=== PATIENT | female | born 1990 | race Caucasian/White ===

== ENCOUNTER 2018-02-02 06:28 | Emergency (ER) | payer OTHER | END 2018-02-02 07:21 | disposition home or self-care (01) | LOC: ERS 06:28 | DX: O99.512 Diseases of the respiratory system complicating pregnancy, second trimester (principal); J02.9 Acute pharyngitis, unspecified; O99.89 Other specified diseases and conditions complicating pregnancy, childbirth and the puerperium; R09.81 Nasal congestion; Z3A.18 18 weeks gestation of pregnancy | CPT/HCPCS: 87081; 87430; 99283 ==

== ENCOUNTER 2018-06-12 05:30 | Inpatient (IN) | payer OTHER ==
--- NOTE | 2018-06-11 20:38 | PDOC.LDHP ---
Labor and Delivery H&P Chief complaint: scheduled induction HPI: 27 Y/0 AT 37 AND 2/7 PRESENTS TODAY FOR MEDICAL TERM INDUCTION OF LABOR FOR GHTN, PREVIOUS HX OF DEMISE FOR CARDIAC RELATED DEFORMITY. ECHO THIS APPEARS TO BE NORMAL. PATIENT HAS HAD WEEKLY BPP TESTING IN-OFFICE. NO BP MEDICATIONS HAVE BEEN USED. Current gestational age (weeks): 37 Current complications: gestational hypertension Abnormal US findings: No Current medications: pre- vitamins Social history: none - Physical Exam Vital signs reviewed and normal: yes General: NAD Heart: RRR Lungs: nonlabored breathing Abdomen: NTTP Extremeties: no edema - Assessment L&D Assessment: medically indicated induction - Plan Plan: admit to L&D
[~2018-06-12 05:30] MED LIST: Butorphanol Tartrate 1 MG/ML VIAL SLOW IVP PRN; Carboprost 250 MCG/ML AMP IM PRN; Diphenoxylate HCl/Atropine Tablet PO PRN; HYDROcodone/Acetaminophen 5/325 mg Tablet PO PRN; Ibuprofen 800 MG TAB PO PRN; Lidocaine 1% (PF) 30 ML VIAL SC PRN; Misoprostol 200 MCG TAB PR PRN; NS / Oxytocin 40 units/1000ml 1,000 ML IV PRN; NS w/ Oxytocin 10 units 500 ML IV SCH; Ondansetron PF 4 MG/2 ML Vial IVP PRN; Promethazine HCl 25 MG/ML VIAL IM PRN
[2018-06-12 07:30] VITALS: BMI 29.3
[2018-06-12] MEDS: Lactated Ringer's 1,000 ML IV SCH ×3 (07:52→16:02)
[2018-06-12] MEDS: NS w/ Oxytocin 10 units 500 ML IV SCH ×2 (08:15→08:27)
[2018-06-12 08:24] LABS: Hemoglobin 12.6 g/dL (12.0-16.0); Mean Corpuscular HGB CONC 33.7 g/dL (32.0-36.0); Mean Corpuscular Hemoglobin 30.1 pg (27.0-31.0); Mean Corpuscular Volume 89.3 fL (78.0-98.0); Mean Platelet Volume 9.5 fL (7.4-10.4); Platelet Count 160 thou/uL (130-400); RBC Distribution Width 11.8 % (11.5-14.5)
[2018-06-12 09:03] LABS: Syphilis Antibody Nonreactive (Nonreactive); Syphilis Antibody Index 0.03 S/CO (<1.00 Non-Reactive)
[2018-06-13] MEDS: Lactated Ringer's 1,000 ML IV SCH ×3 (00:10→18:45)
[2018-06-13] MEDS: NS w/ Oxytocin 10 units 500 ML IV SCH (06:53)
[2018-06-13 13:52] LABS: HBSAg Index 0.22 S/CO (0-0.99); Hep B Surf Ag Non-Reactive S/CO (NonReactive)
[2018-06-13] MEDS ORDERED: NS / Oxytocin 40 units/1000ml 1,000 ML IV SCH (15:17)
[2018-06-13] MEDS ORDERED: Bisacodyl 10 MG SUPP PR PRN (15:17)
[2018-06-13] MEDS ORDERED: Zolpidem Tartrate 5 MG TAB PO PRN (15:17)
[2018-06-13] MEDS ORDERED: Benzocaine/Menthol 20-0.5% 60 ML CAN TOP PRN (15:17)
[2018-06-13] MEDS ORDERED: Milk Of Magnesia 30 ML UDCUP PO PRN (15:17)
[2018-06-13] MEDS ORDERED: diphenhydrAMINE 25 MG CAP PO PRN (15:17)
[2018-06-13] MEDS ORDERED: Preparation H Ointment 28 GM TUBE PR PRN (15:17)
[2018-06-13] MEDS ORDERED: Promethazine HCl 25 MG/ML VIAL IM PRN (15:17)
[2018-06-13] MEDS ORDERED: HYDROcodone/Acetaminophen 5/325 mg Tablet PO PRN ×2 (15:17)
[2018-06-13] MEDS ORDERED: Ondansetron PF 4 MG/2 ML Vial IVP PRN (15:17)
[2018-06-13] MEDS ORDERED: Lanolin Ointment 7 GM TUBE TOP PRN (15:17)
[2018-06-13] MEDS: Ferrous Sulfate 325 MG TAB PO SCH (18:03)
[2018-06-14 06:36] LABS: Hemoglobin 11.9 g/dL (12.0-16.0); Mean Corpuscular HGB CONC 33.7 g/dL (32.0-36.0); Mean Corpuscular Hemoglobin 30.2 pg (27.0-31.0); Mean Corpuscular Volume 89.5 fL (78.0-98.0); Mean Platelet Volume 8.6 fL (7.4-10.4); Platelet Count 126 thou/uL (130-400); RBC Distribution Width 11.6 % (11.5-14.5); Red Blood Cell (RBC) Count 3.95 mill/uL (4.20-5.40); White Blood Cell (WBC) Count 10.4 thou/uL (4.8-10.8)
[2018-06-14] MEDS ORDERED: Prenatal Vitamin 1 TAB PO SCH (09:00)
[2018-06-14] MEDS: Ibuprofen 800 MG TAB PO SCH ×3 (09:00→16:31)
[2018-06-14] MEDS ORDERED: Adacel (T-DAP) 0.5 ML SYRINGE IM ONE (09:00)
[2018-06-14] MEDS ORDERED: Varicella virus, LIVE 0.5 ML VIAL SC ONE (09:00)
[2018-06-14] MEDS ORDERED: Measles/Mumps/Rubella 10 MCG/0.5 ML VIAL SC ONE (09:00)
[2018-06-14] MEDS: Docusate Calcium (SURFAK) 240 MG CAP PO SCH ×2 (09:00→11:58)
[2018-06-14 11:40] VITALS: BP 142/94; TEMP 98.1
[2018-06-14] MEDS: Ferrous Sulfate 325 MG TAB PO SCH ×2 (11:58→19:13)
--- NOTE | 2018-06-14 19:34 | PDOC.PP ---
Post Progress Note Post Day #: 1 PO intake tolerated: yes Flatus: yes Ambulation: yes Vital Signs (12 hours) Temp Pulse Resp BP Pulse Ox 06/14/18 11:39 98.1 F 70 20 142/94 H 06/14/18 08:19 98.5 F 92 20 136/65 97 06/14/18 08:15 97 Weight Weight 179 lb - Physical Examination General: NAD Cardiovascular: no m/r/g, RRR Respiratory: clear to auscultation bilaterally, non-labored breathing Abdominal: + bowel sounds, lochia Extremities: negative homans (B) Neurological: no gross focal deficits Psychiatric: A&Ox3, normal affect (DC to home. F/U in clinic in 2 weeks.) Result Diagrams: 06/14/18 06:19 Additional Labs: Post Labs Blood Type A POSITIVE 06/12/18 08:01 Hep Bs Antigen Non-Reactive S/CO (NonReactive) 06/12/18 08:01
--- NOTE | 2018-06-14 19:36 | PDOC.LDPN ---
Labor & Delivery Progress Note - Subjective Subjective: comfortable - Objective Vital signs reviewed and normal: yes General: NAD, resting Uterine fundus: non tender Dilation: 4 Effacement: 75% Station: -2 FHT: category 1 (Patient is doing well. Pitocin currently off. Will restart in the morning if cervical change is not achieved. BP is stable.)
--- NOTE | 2018-06-15 03:23 | DN ---
DATE OF PROCEDURE: 06/13/2018 This lady for the majority of her went under a different name including her insurance which is under last name [facility] for much of the . PREOPERATIVE DIAGNOSIS: Intrauterine at 37 weeks with a history of chronic hypertension as well as a history of a stillbirth, premature delivery with the fetus having congenital cardiac anomalies, turned out to be lethal. POSTOPERATIVE DIAGNOSIS: Intrauterine at 37 weeks with a history of chronic hypertension as well as a history of a stillbirth, premature delivery with the fetus having congenital cardiac anomalies, turned out to be lethal. PROCEDURE PERFORMED: Spontaneous vaginal delivery over intact perineum without epidural. FINDINGS: Viable female , weighing 2769 g or 6 pounds 2 ounces with Apgars 9 and 9. QUANTITATIVE BLOOD LOSS: 203 mL. COMPLICATIONS: None. PROCEDURE IN DETAIL: The patient presented to [facility] where she was admitted to the labor and delivery service. The patient underwent a normal and uneventful labor with normal cervical dilatation until she was found to be completely dilated. She was then allowed to push and was able to bring the baby down and delivered the baby in a vertex presentation without difficulties. Once the head delivered in occiput anterior position, the shoulders followed spontaneously along with the rest of the baby's body. Once out the baby's mouth and nose were bulb suctioned. The cord was clamped and cut and baby was handed to waiting attendants. Cord blood was collected. Gentle fundal massage was performed and the placenta delivered intact without problems. Hemostasis was assured. Quantitative blood loss was calculated. Inspection of the cervix, vaginal vault, and perineum did not reveal any lacerations needing suturing. Once again, hemostasis was within normal limits and the patient was allowed to recover in the labor and delivery room. Baby went to nursery. Job ID: [id number]
== END 2018-06-14 20:11 | disposition home or self-care (01) | DRG 807 ==
LOC: L&D 06:36 → 3SW 06-13 15:43
PROVIDERS: ADMIT Obstetrics & Gynecology; ATTEND Obstetrics & Gynecology
PROC: 10E0XZZ Delivery of Products of Conception, External Approach (ICD-10-PCS; principal; 2018-06-13)
PROC: 10907ZC Drainage of Amniotic Fluid, Therapeutic from Products of Conception, Via Natural or Artificial Opening (ICD-10-PCS; 2018-06-13)
DX: O13.4 Gestational [pregnancy-induced] hypertension without significant proteinuria, complicating childbirth (principal); Z37.0 Single live birth; Z3A.37 37 weeks gestation of pregnancy; O69.81X0 Labor and delivery complicated by cord around neck, without compression, not applicable or unspecified; Z87.59 Personal history of other complications of pregnancy, childbirth and the puerperium
CPT/HCPCS: 36415; 85027; 86780; 86850; 86900; 86901; 87340

== ENCOUNTER 2020-01-15 13:03 | Inpatient (IN) | payer OTHER ==
[2020-01-15 13:45] VITALS: BMI 27.4
[2020-01-15] MEDS: Lactated Ringer's 1,000 ML IV SCH (13:46)
[2020-01-15] MEDS ORDERED: Penicillin G Potassium 5 MILL.UNITS VIAL ONE ×3 (13:56→13:57)
[2020-01-15] MEDS ORDERED: Docusate 100 MG CAP PO PRN (14:17)
[2020-01-15] MEDS ORDERED: Butorphanol Tartrate 1 MG/ML VIAL SLOW IVP PRN (14:17)
[2020-01-15] MEDS ORDERED: Misoprostol 200 MCG TAB PR PRN (14:17)
[2020-01-15] MEDS ORDERED: Ibuprofen 800 MG TAB PO PRN (14:17)
[2020-01-15] MEDS ORDERED: Promethazine HCl 25 MG/ML VIAL IM PRN (14:17)
[2020-01-15] MEDS ORDERED: Carboprost 250 MCG/ML AMP IM PRN (14:17)
[2020-01-15] MEDS ORDERED: Acetaminophen 500 MG TAB PO PRN (14:17)
[2020-01-15] MEDS ORDERED: Diphenoxylate HCl/Atropine Tablet PO PRN ×2 (14:17)
[2020-01-15] MEDS ORDERED: Lidocaine 1% (PF) 30 ML VIAL SC PRN (14:17)
[2020-01-15] MEDS ORDERED: Methylergonovine 0.2 MG/ML VIAL IM PRN (14:17)
[2020-01-15] MEDS ORDERED: Ondansetron PF 4 MG/2 ML Vial IVP PRN (14:17)
[2020-01-15] MEDS ORDERED: hydrALAZINE 20 MG/ML VIAL SLOW IVP PRN (14:17)
[2020-01-15] MEDS ORDERED: HYDROcodone/Acetaminophen 5/325 mg Tablet PO PRN ×2 (14:17)
[2020-01-15] MEDS ORDERED: NS w/ Oxytocin 10 units 500 ML IV SCH ×2 (14:30)
[2020-01-15] MEDS ORDERED: Penicillin G Potassium 5 MILL.UNITS in Sodium Chloride 0.9% 100 ML IVPB SCH (14:30)
[2020-01-15 15:12] LABS: Hemoglobin 11.5 g/dL (12.0-16.0); Mean Corpuscular Hemoglobin 29.9 pg (27.0-31.0); Mean Corpuscular Volume 85.3 fL (78.0-98.0); Mean Platelet Volume 8.7 fL (7.4-10.4); Platelet Count 181 thou/uL (130-400); RBC Distribution Width 11.9 % (11.5-14.5); Red Blood Cell (RBC) Count 3.85 mill/uL (4.20-5.40); White Blood Cell (WBC) Count 9.9 thou/uL (4.8-10.8)
[2020-01-15 15:47] LABS: HBSAg Index 0.21 S/CO (0-0.99); Hep B Surf Ag Non-Reactive S/CO (NonReactive); Syphilis Antibody Nonreactive (Nonreactive); Syphilis Antibody Index 0.03 S/CO (<1.00 Non-Reactive)
[2020-01-15] MEDS: Penicillin G 2.5 MILL.units 2.5 MILL.UNITS in Premix Bag 1 BAG IVPB SCH (18:04)
[2020-01-15] MEDS ORDERED: Labetalol HCl 100 MG/20 ML VIAL ONE (22:20)
[2020-01-15] MEDS: NS / Oxytocin 40 units/1000ml 1,000 ML IV PRN ×2 (22:46→23:55)
[2020-01-15] MEDS ORDERED: Labetalol HCl 100 MG/20 ML VIAL SLOW IVP SCH (23:00)
[2020-01-16] MEDS ORDERED: Bisacodyl 10 MG SUPP PR PRN (02:03)
[2020-01-16] MEDS ORDERED: diphenhydrAMINE 25 MG CAP PO PRN (02:03)
[2020-01-16] MEDS ORDERED: Milk Of Magnesia 30 ML UDCUP PO PRN (02:03)
[2020-01-16] MEDS ORDERED: Preparation H Ointment 28 GM TUBE PR PRN (02:03)
[2020-01-16] MEDS ORDERED: Misoprostol 200 MCG TAB VAG PRN (02:03)
[2020-01-16] MEDS ORDERED: Lanolin Ointment 7 GM TUBE TOP PRN (02:03)
[2020-01-16] MEDS ORDERED: Measles/Mumps/Rubella 10 MCG/0.5 ML VIAL SC ONE (02:03)
[2020-01-16] MEDS ORDERED: Ondansetron PF 4 MG/2 ML Vial IVP PRN (02:03)
[2020-01-16] MEDS ORDERED: Benzocaine-Menthol 82.5 ML CAN TOP PRN (02:03)
[2020-01-16] MEDS ORDERED: hydrALAZINE 20 MG/ML VIAL SLOW IVP PRN (02:03)
[2020-01-16] MEDS ORDERED: Methylergonovine 0.2 MG/ML VIAL IM PRN (02:03)
[2020-01-16] MEDS ORDERED: Adacel (T-DAP) 0.5 ML SYRINGE IM ONE (02:03)
[2020-01-16] MEDS ORDERED: Varicella virus, LIVE 0.5 ML VIAL SC ONE (02:03)
[2020-01-16] MEDS ORDERED: NS / Oxytocin 40 units/1000ml 1,000 ML IV SCH (02:03)
[2020-01-16] MEDS ORDERED: HYDROcodone/Acetaminophen 5/325 mg Tablet PO PRN ×2 (02:03)
[2020-01-16] MEDS ORDERED: Zolpidem Tartrate 5 MG TAB PO PRN (02:03)
[2020-01-16] MEDS ORDERED: Promethazine HCl 25 MG/ML VIAL IM PRN (02:03)
[2020-01-16] MEDS: Lactated Ringer's 1,000 ML IV SCH (02:53)
[2020-01-16] MEDS: Penicillin G 2.5 MILL.units 2.5 MILL.UNITS in Premix Bag 1 BAG IVPB SCH (02:53)
[2020-01-16] MEDS: Ibuprofen 800 MG TAB PO SCH ×3 (03:06→18:45)
[2020-01-16] MEDS ORDERED: Witch Hazel-Glycerin 1 EACH JAR TOP PRN (03:33)
[2020-01-16] MEDS: Ferrous Sulfate 325 MG TAB PO SCH ×2 (08:37→17:28)
[2020-01-16] MEDS: Prenatal Vitamin 1 TAB PO SCH (08:38)
[2020-01-16] MEDS: Docusate Calcium (SURFAK) 240 MG CAP PO SCH ×2 (08:39→23:16)
[2020-01-16 09:43] LABS: Hemoglobin 11.1 g/dL (12.0-16.0); Mean Corpuscular HGB CONC 34.1 g/dL (32.0-36.0); Mean Corpuscular Hemoglobin 29.4 pg (27.0-31.0); Mean Corpuscular Volume 86.2 fL (78.0-98.0); Mean Platelet Volume 8.6 fL (7.4-10.4); Platelet Count 159 thou/uL (130-400); RBC Distribution Width 12.1 % (11.5-14.5); Red Blood Cell (RBC) Count 3.78 mill/uL (4.20-5.40); White Blood Cell (WBC) Count 11.4 thou/uL (4.8-10.8)
[2020-01-16 12:54] LABS: SARS-CoV-2 MS2 Positive; SARS-CoV-2 N Gene Negative; SARS-CoV-2 S Gene Negative; SARS-CoV-2 by NAA Not Detected (NotDetected); SARS-CoV-2 orf1ab Negative
--- NOTE | 2020-01-16 17:51 | PDOC.PP ---
Post Progress Note Post Day #: 1 PO intake tolerated: yes Flatus: yes Ambulation: yes Vital Signs (12 hours) Temp Pulse Resp BP Pulse Ox 01/16/20 12:05 98.4 F 61 20 138/73 01/16/20 08:13 98.4 F 60 20 149/71 H 99 Weight Weight 165 lb - Physical Examination General: NAD Cardiovascular: no m/r/g, RRR Respiratory: clear to auscultation bilaterally, non-labored breathing Abdominal: + bowel sounds, lochia, no distention, appropriately TTP Extremities: negative homans (B) Neurological: no gross focal deficits Psychiatric: A&Ox3, normal affect Result Diagrams: 01/16/20 09:20 Additional Labs: Post Labs Blood Type A POSITIVE 01/15/20 14:59 Hep Bs Antigen Non-Reactive S/CO (NonReactive) 01/15/20 14:59
--- NOTE | 2020-01-16 21:29 | DN ---
DATE OF PROCEDURE: 01/15/2020 TIME: 2137 hours [place] Daylight Savings Time. PREOPERATIVE DIAGNOSIS: Intrauterine at 38 weeks and 2 days with a spontaneous onset of labor. POSTOPERATIVE DIAGNOSIS: Intrauterine at 38 weeks and 2 days with a spontaneous onset of labor. PROCEDURE PERFORMED: Spontaneous vaginal delivery over first-degree laceration of the perineum. FINDINGS: Viable male weighing 3445 g or 7 pounds 9 ounces, Apgars of 9 and 9. QUANTITATIVE BLOOD LOSS: 50 mL. PROCEDURE IN DETAIL: The patient presented to [facility] where she was admitted to the labor and delivery service. The patient underwent a normal and uneventful labor with normal cervical dilatation until she was found to be completely dilated. She was then allowed to push and was able to bring the baby down and delivered the baby in a vertex presentation without difficulties. Once the head delivered in occiput anterior position, the shoulders followed spontaneously along with the rest of the baby's body. Once out the baby's mouth and nose were bulb suctioned. The cord was clamped and cut and baby was handed to waiting attendants. Cord blood was collected. Gentle fundal massage was performed and the placenta delivered intact without problems. Hemostasis was assured. Quantitative blood loss was calculated. Inspection of the cervix, vaginal vault, and perineum did not reveal any lacerations needing suturing. Once again, hemostasis was within normal limits and the patient was allowed to recover in the labor and delivery room. Baby went to nursery. Job ID: [id number]
[2020-01-16 23:20] VITALS: TEMP 98.2
[2020-01-17] MEDS: Ibuprofen 800 MG TAB PO SCH (03:58)
[2020-01-17 08:16] VITALS: BP 134/77
[2020-01-17] MEDS: Ferrous Sulfate 325 MG TAB PO SCH (08:27)
[2020-01-17] MEDS: Prenatal Vitamin 1 TAB PO SCH (08:28)
[2020-01-17] MEDS: Docusate Calcium (SURFAK) 240 MG CAP PO SCH (08:29)
== END 2020-01-17 10:55 | disposition home or self-care (01) | DRG 807 ==
LOC: L&D 13:03 → 3SW 01-16 01:44
PROVIDERS: ADMIT Obstetrics & Gynecology; ATTEND Obstetrics & Gynecology
PROC: 10E0XZZ Delivery of Products of Conception, External Approach (ICD-10-PCS; principal; 2020-01-15)
PROC: 10907ZC Drainage of Amniotic Fluid, Therapeutic from Products of Conception, Via Natural or Artificial Opening (ICD-10-PCS; 2020-01-15)
PROC: 0HQ9XZZ Repair Perineum Skin, External Approach (ICD-10-PCS; 2020-01-15)
DX: O70.0 First degree perineal laceration during delivery (principal); Z37.0 Single live birth; Z20.828 Contact with and (suspected) exposure to other viral communicable diseases; Z3A.38 38 weeks gestation of pregnancy
CPT/HCPCS: 36415; 85027; 86780; 86850; 86900; 86901; 87340; 87635; J2001; J2540; J2590; U0003